=== PATIENT | female | born 1975 | race Caucasian/White ===

== ENCOUNTER → 2025-02-17 11:30 | Outpatient (BNV) | payer OTHER, SELFPAY | PROVIDERS: Visit Provider Psychiatry & Neurology Psychiatry | DX: F33.9 Major depressive disorder, recurrent, unspecified (principal) | CPT/HCPCS: 90792; 99203 ==

== ENCOUNTER 2025-02-20 10:45 | Outpatient (RCR) | payer OTHER, SELFPAY ==
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
[2025-02-20 10:55] VITALS: BMI 39.8
[2025-02-20 11:41] VITALS: BP 136/92; PULSE 80; TEMP 36.7
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
== END 2025-02-20 23:59 | disposition home or self-care (01) ==
LOC: HO.PHPA 10:45
PROVIDERS: Visit Provider Psychiatry & Neurology Psychiatry
DX: F33.9 Major depressive disorder, recurrent, unspecified (principal); F90.9 Attention-deficit hyperactivity disorder, unspecified type; F84.0 Autistic disorder; Z79.899 Other long term (current) drug therapy
CPT/HCPCS: 90791; 90853

== ENCOUNTER 2025-03-09 09:45 | Outpatient (RCR) | payer OTHER, SELFPAY ==
[2025-02-23 13:30] VITALS: BP 134/94; PULSE 80; TEMP 36.7
--- NOTE | 2025-02-23 13:50 | PC.ADMIT ---
Patient is a 49 year old female who initially attended [facility] on 02/17/25 however was having insurance issues and is now IOP LOC. Patient reportedly completed an online PHP prior to coming to [facility]. Patient has a history of hospitalization at [facility] from 01/25-01/31/25 secondary to increased depression and anxiety. See Nursing Assessment completed on 02/20/25 for more information. Patient identified supports being her cousins Pawan and Dulce. Patient is currently taking a leave of absence from work to work on her mental health. Patient is alert and oriented x4. She is calm and cooperative. She presented with depressed mood and affect. Regarding SI patient stated I don't have suicidal thoughts anymore. I had thoughts that I don't want to be here but I would never do it. Patient denied HI. Patient was given a copy of her safety plan if needed. Medications updated with patient and [facility] medical record. Patient reports taking medications as prescribed.
--- NOTE | 2025-02-23 14:47 | HO.PHP ---
Matilde's case was opened during weekly treatment team
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
--- NOTE | 2025-03-09 10:55 | PC.NURSE ---
Patient reports she has a new PCP appointment at [facility] in [place] in Apr 2025 and a new PCP appointment with [facility] in [place] February 14, 2026 at 1:00 pm.
--- NOTE | 2025-03-13 14:52 | HO.IOP ---
IOP admin, Thania, informed the team that Matilde will not be in attendance to program today due to having continued symptoms of the flu, in which she is hoping to be here tomorrow.
== END 2025-03-09 23:59 | disposition home or self-care (01) ==
LOC: HO.IOP 09:45
PROVIDERS: Visit Provider Psychiatry & Neurology Psychiatry
DX: F33.2 Major depressive disorder, recurrent severe without psychotic features (principal); F34.89 Other specified persistent mood disorders; F41.3 Other mixed anxiety disorders; F90.9 Attention-deficit hyperactivity disorder, unspecified type; Z79.899 Other long term (current) drug therapy
CPT/HCPCS: S9480